=== PATIENT | female | born 1935 | race Caucasian/White ===

== ENCOUNTER 2016-09-20 02:20 | Observation (INO) | payer MEDICARE, OTHER ==
[~2016-09-20] VITALS: Ht 162.6 cm; Wt 59.0 kg
[2016-09-20] MEDS ORDERED: MORPHINE SULFATE 4 MG/ML, 1ML ONE (02:43)
[2016-09-20 02:53] LABS: HEMOGLOBIN 13.6 g/dL (11.7-16.4)
[2016-09-20] MEDS ORDERED: OMEP40CA6 PO (03:00)
[2016-09-20] MEDS ORDERED: PLEASE ENTER ALLERGIES MC SCH ×2 (03:00)
[2016-09-20] MEDS ORDERED: LISI40TA PO (03:00)
[2016-09-20] MEDS ORDERED: MORPHINE SULFATE 4 MG/ML, 1ML IVPush PRN ×2 (03:00→04:00)
[2016-09-20] MEDS ORDERED: SODIUM CHLORIDE FLUSH 10ML SYR IVF ONE (03:00)
[2016-09-20] MEDS ORDERED: ASPI-621 PO (03:00)
[2016-09-20] MEDS ORDERED: ATOR10TA9 PO (03:00)
[2016-09-20 03:07] LABS: BLOOD UREA NITROGEN 21 mg/dL (7-18)
[2016-09-20 03:13] LABS: IS PT STATUS REG ER OR PRE ER? YES
[2016-09-20] MEDS ORDERED: ONDANSETRON 2MG/ML, 2ML IVPush PRN (04:00)
[2016-09-20 04:46] VITALS: BP 157/87
[2016-09-20] MEDS ORDERED: PROMETHAZINE 25 MG/ML, 1ML IM PRN (05:30)
[2016-09-20] MEDS ORDERED: POLYETHYLENE GLYCOL 17 GM PACKET PO PRN (05:30)
[2016-09-20] MEDS ORDERED: ACETAMINOPHEN 325 MG TABLET PO PRN (05:30)
[2016-09-20] MEDS ORDERED: ONDANSETRON 2MG/ML, 2ML IVP PRN (05:30)
[2016-09-20] MEDS ORDERED: LABETALOL 5MG/ML, 20ML IV PRN (05:30)
[2016-09-20] MEDS ORDERED: BISACODYL 10 MG SUPP PR PRN (05:30)
[2016-09-20] MEDS ORDERED: ENALAPRILAT 1.25 MG/ML, 2ML IVPush PRN (05:30)
[2016-09-20] MEDS ORDERED: HYDROcodone/APAP 5/325 TABLET PO PRN (05:30)
[2016-09-20 06:34] LABS: BLOOD UREA NITROGEN 22 mg/dL (7-18)
[2016-09-20 06:37] LABS: ASPARTATE AMINO TRANSFERASE 14 U/L (15-37)
[2016-09-20 06:45] LABS: IS PT STATUS REG ER OR PRE ER? NO
[2016-09-20 08:17] VITALS: BP 129/73
[2016-09-20] MEDS: ENOXAPARIN 40 MG/0.4 ML SQ SCH (08:53)
[2016-09-20] MEDS: ASPIRIN 81 MG TABLET EC PO SCH (08:55)
[2016-09-20] MEDS: OMEPRAZOLE 20 MG CAPSULE.DR PO SCH (08:55)
[2016-09-20] MEDS: LISINOPRIL 20 MG TABLET PO SCH (08:55)
[2016-09-20 12:48] LABS: IS PT STATUS REG ER OR PRE ER? YES
[2016-09-20 13:00] VITALS: BP 130/75
[2016-09-20] MEDS ORDERED: ARTIFICIAL TEARS OPHTH SOLN 15ML EACHEYE PRN (14:30)
[2016-09-20 20:00] VITALS: BP 111/71
[2016-09-20] MEDS ORDERED: ATORVASTATIN 10 MG TABLET PO SCH (21:00)
[2016-09-21 02:30] VITALS: BP 108/66
[2016-09-21 05:46] LABS: HEMOGLOBIN 12.6 g/dL (11.7-16.4)
[2016-09-21 06:00] LABS: BLOOD UREA NITROGEN 20 mg/dL (7-18)
[2016-09-21 07:40] VITALS: BP 110/66
[2016-09-21] MEDS: OMEPRAZOLE 20 MG CAPSULE.DR PO SCH (08:06)
[2016-09-21] MEDS: ASPIRIN 81 MG TABLET EC PO SCH (08:06)
[2016-09-21] MEDS: LISINOPRIL 20 MG TABLET PO SCH (08:06)
[2016-09-21] MEDS: ENOXAPARIN 40 MG/0.4 ML SQ SCH (08:06)
== END 2016-09-21 11:17 | disposition home or self-care (01) ==
LOC: ED 03:19 → INTOOBSV 03:51 → EDIP 03:51 → 5SO 04:41 → DCLOUNGE 09-21 11:02
PROVIDERS: ADMIT Internal Medicine; ATTEND Internal Medicine
DX: R07.89 Other chest pain (principal); E78.5 Hyperlipidemia, unspecified; I10 Essential (primary) hypertension; Z95.0 Presence of cardiac pacemaker; Z95.2 Presence of prosthetic heart valve; Z95.3 Presence of xenogenic heart valve
CPT/HCPCS: 36415; 71010; 80048; 80053; 80061; 82040; 83735; 84100; 84443; 84484; 85025; 93005; 93306; 96372; 96374; 96375; 99285; G0378; J1650; J2405